=== PATIENT | female | born 1955 | race Caucasian/White ===

== ENCOUNTER 2018-03-22 19:15 | Emergency (ER) | payer BC ==
[2018-03-22] MEDS ORDERED: Albuterol/Ipratropium 3.0-0.5 MG/3 ML Neb Soln ONE (19:59)
[2018-03-22] MEDS ORDERED: Albuterol/Ipratropium 3.0-0.5 MG/3 ML Neb Soln NEB PRN (20:03)
[2018-03-22] MEDS ORDERED: Furosemide 40 MG/4 ML VIAL ONE (20:10)
[2018-03-22] MEDS ORDERED: Furosemide 20 MG/2 ML VIAL IVPUSH SCH (20:15)
[2018-03-22] MEDS ORDERED: Sodium Chloride 0.9% 10 ML Syringe FLUSH PRN (20:21)
--- NOTE | 2018-03-22 20:36 | EDM.PDOC ---
ED HPI GENERAL MEDICAL PROBLEM - General Chief Complaint: Chest Pain Stated Complaint: SOB Time Seen by Provider: 03/22/18 19:35 Source of Information: Reports: Patient History Limitations: Reports: Other (Extreme dyspnea) - History of Present Illness INITIAL COMMENTS - FREE TEXT/NARRATIVE: 62-year-old old smoker comes of the 3 days onset of shortness of breath increased swelling this evening the chest pain 3/10 no previous history of back or infarction but thought to have a CVA January 31 but did not. Primary survey A: tachypnea 30, pressure 139/90, heart rate 112, recent very dyspneic. B: Bilateral air exchange in her lungs with marked retraction and accessory muscle use no tracheal tug no tracheal deviation and 4:00 ultrasound bilateral slide signs noted no evidence for pneumothorax C: Heart rate 111-112 patient diaphoretic 3/10 chest pain midsternal nonradiating pericardial effusion. 4 hyper contractility of the heart with perhaps 10-20% contractile compression of the heart. Less than the expected 50% contractile activity. Minimal vena cava contractility. Reflex fluid under hydration. Door CHF. With myocardiopathy. D: no neuro deficit line E: No rash no purpura but skin is diaphoretic. ER course with BiPAP patient has 50% improvement in her respiration. She states it is "50% improved", and respiration is not as labored and she is no longer anxious. 20 mg Lasi IV EKG sinus tachycardia heart rate 101 left atrial enlargement interventricular conduction defect with possible atypical left bundle-branch block because large S waves noted V1 V2 V3 and rsR' I, II, III, AVL, AVF; the large ventricular complex V6 - Related Data Allergies Allergy/AdvReac Type Severity Reaction Status Date / Time No Known Allergies Allergy Verified 03/23/18 07:59 Home Meds: Home Meds Albuterol Sulfate [Proair Hfa] 2 puff INH Q4H PRN 03/23/18 [History] DULoxetine [Cymbalta] 60 mg PO BID 03/23/18 [History] Furosemide [Lasix] 20 mg PO DAILY #40 tab 03/23/18 [Rx] Gabapentin [Neurontin] 100 mg PO TID 03/23/18 [History] Hyoscyamine Sulfate [Hyoscyamine Sulfate ER] 0.375 mg PO BID 03/23/18 [History] Levothyroxine [Sythroid] 100 mcg PO DAILY 03/23/18 [History] Potassium Chloride 20 meq PO DAILY #20 tab.er.prt 03/23/18 [Rx] Tiotropium Cascade [Spiriva Respimat] 2 puff INH DAILY 03/23/18 [History] ED ROS GENERAL - Review of Systems Review Of Systems: See Below Constitutional: Reports: Diaphoresis HEENT: Reports: No Symptoms Respiratory: Reports: Shortness of Breath, Cough Cardiovascular: Reports: Chest Pain, Dyspnea on Exertion, Lightheadedness Endocrine: Reports: No Symptoms GI/Abdominal: Reports: No Symptoms : Reports: No Symptoms Musculoskeletal: Reports: No Symptoms Skin: Reports: No Symptoms Neurological: Reports: No Symptoms Psychiatric: Reports: No Symptoms Hematologic/Lymphatic: Reports: No Symptoms ED EXAM, GENERAL - Physical Exam Exam: See Below Free Text/Narrative:: Patient is markedly dyspneic. And had a very dramatic response to BiPAP with 50 % improvement in her respirations Exam Limited By: Other (His dyspneic psoas difficult to talk but she can talk) General Appearance: Alert, Severe Distress (.) Eye Exam: Bilateral Eye: Normal Inspection Ears: Normal External Exam, Normal Canal, Hearing Grossly Normal, Normal TMs Ear Exam: Bilateral Ear: Auricle Normal, Canal Normal, TM normal Nose: Normal Inspection Throat/Mouth: Normal Inspection Head: Atraumatic, Normocephalic Neck: Normal Inspection, Supple, Non-Tender Respiratory/Chest: Other (Marked respiratory distress) Cardiovascular: Normal Peripheral Pulses, Regular Rate, Rhythm, No Edema, No Gallop, No Murmur, No Rub, Other Peripheral Pulses: 1+: Radial (L), Radial (R) GI/Abdominal: Normal Bowel Sounds, Soft, Non-Tender, No Organomegaly, No Distention, No Abnormal Bruit, No Mass (Female) Exam: Deferred Rectal (Female) Exam: Deferred Back Exam: Normal Inspection Psychiatric: Normal Affect Skin Exam: Warm, Dry Course - Vital Signs Last Recorded V/S: Last Vital Signs Temp 36.6 C 03/22/18 19:15 Pulse 115 H 03/22/18 19:15 Resp 18 03/22/18 19:15 BP 159/108 H 03/22/18 19:15 Pulse Ox 86 L 03/22/18 19:15 - Orders/Labs/Meds Orders: Active Orders 24 hr Category Date Time Status BIPAP Adult [RT BiPAP/CPAP] [RC] ASDIRECTED Care 03/22/18 19:58 Active EKG Documentation Completion [RC] ASDIRECTED Care 03/22/18 19:28 Active EKG Documentation Completion [RC] ASDIRECTED Care 03/22/18 19:28 Active RT Aerosol Therapy [RC] ASDIRECTED Care 03/22/18 20:03 Active CXR [Chest 1V Frontal] [CR] Stat Exams 03/22/18 19:27 Taken Saline Lock Insert [OM.PC] Routine Oth 03/22/18 20:21 Ordered EKG 12 Lead [EK] Routine Ther 03/22/18 19:28 Ordered Labs: Laboratory Tests 03/22/18 03/22/18 03/22/18 Range/Units 19:35 19:35 19:35 WBC 5.6 (4.5-12.0) X10-3/uL RBC 3.86 (3.23-5.20) x10(6)uL Hgb 12.1 (11.5-15.5) g/dL Hct 36.8 (30.0-51.3) % MCV 95.2 (80-96) fL MCH 31.3 (27.7-33.6) pg MCHC 32.8 (32.2-35.4) g/dL RDW 14.2 (11.5-15.5) % Plt Count 204 (125-369) X10(3)uL MPV 8.5 (7.4-10.4) fL Neut % (Auto) 63.2 (46-82) % Lymph % (Auto) 27.9 (13-37) % Donley % (Auto) 6.6 (4-12) % Eos % (Auto) 2 (1.0-5.0) % Baso % (Auto) 1 (0-2) % Neut # (Auto) 3.5 (1.6-8.3) # Lymph # (Auto) 1.6 (0.6-5.0) # Donley # (Auto) 0.4 (0.0-1.3) # Eos # (Auto) 0.1 (0.0-0.8) # Baso # (Auto) 0.0 (0.0-0.2) # D-Dimer, Quantitative 2.32 H (0.0-0.59) mg/LFEU ABG pH (7.35-7.45) ABG pCO2 (35-45) mmHg ABG pO2 (83-108) mmHg ABG HCO3 (22-26) mmol/L ABG O2 Saturation (96-97) % ABG Base Excess (-2-2) Juan Test O2 Delivery Device Sodium (135-145) mmol/L Potassium (3.5-5.3) mmol/L Chloride (100-110) mmol/L Carbon Dioxide (21-32) mmol/L BUN (7-18) mg/dL Creatinine (0.55-1.02) mg/dL Est Cr Clr Drug Dosing Estimated GFR (MDRD) (>60) BUN/Creatinine Ratio (9-20) Glucose (80-116) mg/dL Lactic Acid (0.4-2.2) mmol/L Calcium (8.6-10.2) mg/dL Total Bilirubin (0.1-1.3) mg/dL AST (5-25) IU/L ALT (12-36) U/L Alkaline Phosphatase (56-112) IU/L Troponin I < 0.017 L (<0.017-0.056) ng/mL NT-Pro-B Natriuret Pep 4447 H* (<=125) pg/mL Total Protein (6.0-8.0) g/dL Albumin (3.2-4.6) g/dL Globulin g/dL Albumin/Globulin Ratio TSH, Ultra Sensitive 3.41 (0.36-3.74) IU/mL 03/22/18 03/22/18 03/22/18 Range/Units 19:35 19:35 20:01 WBC (4.5-12.0) X10-3/uL RBC (3.23-5.20) x10(6)uL Hgb (11.5-15.5) g/dL Hct (30.0-51.3) % MCV (80-96) fL MCH (27.7-33.6) pg MCHC (32.2-35.4) g/dL RDW (11.5-15.5) % Plt Count (125-369) X10(3)uL MPV (7.4-10.4) fL Neut % (Auto) (46-82) % Lymph % (Auto) (13-37) % Donley % (Auto) (4-12) % Eos % (Auto) (1.0-5.0) % Baso % (Auto) (0-2) % Neut # (Auto) (1.6-8.3) # Lymph # (Auto) (0.6-5.0) # Donley # (Auto) (0.0-1.3) # Eos # (Auto) (0.0-0.8) # Baso # (Auto) (0.0-0.2) # D-Dimer, Quantitative (0.0-0.59) mg/LFEU ABG pH 7.39 (7.35-7.45) ABG pCO2 43 (35-45) mmHg ABG pO2 283 H (83-108) mmHg ABG HCO3 26 (22-26) mmol/L ABG O2 Saturation 100 H (96-97) % ABG Base Excess 0.9 (-2-2) Juan Test Passed O2 Delivery Device Bipap Sodium 139 (135-145) mmol/L Potassium 4.6 (3.5-5.3) mmol/L Chloride 104 (100-110) mmol/L Carbon Dioxide 29 (21-32) mmol/L BUN 11 (7-18) mg/dL Creatinine 1.2 H (0.55-1.02) mg/dL Est Cr Clr Drug Dosing TNP Estimated GFR (MDRD) 45 L (>60) BUN/Creatinine Ratio 9.2 (9-20) Glucose 90 (80-116) mg/dL Lactic Acid 1.1 (0.4-2.2) mmol/L Calcium 8.3 L (8.6-10.2) mg/dL Total Bilirubin 0.4 (0.1-1.3) mg/dL AST 33 H (5-25) IU/L ALT 49 H (12-36) U/L Alkaline Phosphatase 117 H (56-112) IU/L Troponin I (<0.017-0.056) ng/mL NT-Pro-B Natriuret Pep (<=125) pg/mL Total Protein 6.7 (6.0-8.0) g/dL Albumin 2.9 L (3.2-4.6) g/dL Globulin 3.8 g/dL Albumin/Globulin Ratio 0.8 TSH, Ultra Sensitive (0.36-3.74) IU/mL Meds: Medications Discontinued Medications Generic Name Dose Route Start Last Admin Trade Name Freq PRN Reason Stop Dose Admin Albuterol/Ipratropium Confirm 03/22/18 19:59 03/23/18 00:41 Duoneb 3.0-0.5 Mg/3 Ml Administered 03/22/18 20:00 Not Given Dose 3 ml .ROUTE .STK-MED ONE Albuterol/Ipratropium 3 ml 03/22/18 20:03 03/22/18 20:00 Duoneb 3.0-0.5 Mg/3 Ml NEB 3 ml Q2H PRN Administration Shortness of Breath Furosemide 20 mg 03/22/18 20:15 03/22/18 20:13 Lasix IVPUSH Not Given DAILY BRENDA Furosemide Confirm 03/22/18 20:10 03/22/18 20:12 Lasix Administered 03/22/18 20:11 20 mg Dose Administration 40 mg .ROUTE .STK-MED ONE Furosemide 80 mg 03/22/18 21:20 03/22/18 21:30 Lasix IVPUSH 03/22/18 21:21 80 mg NOW ONE Administration Furosemide 80 mg 03/23/18 00:41 03/23/18 07:36 Lasix IM 03/23/18 00:42 80 mg NOW ONE Administration Potassium Chloride 40 meq 03/23/18 00:41 03/23/18 00:45 Potassium Chloride Solution PO 03/23/18 00:42 40 meq ONETIME ONE Administration Sodium Chloride 10 ml 03/22/18 20:21 03/22/18 19:35 Saline Flush FLUSH 10 ml ASDIRECTED PRN Administration Keep Vein Open Torsemide 20 mg 03/22/18 21:21 03/22/18 21:36 Demadex PO 03/22/18 21:22 20 mg ONETIME ONE Administration Departure - Departure Time of Disposition: 00:15 (Presented in extreme shortness of breath heart failure have markedly elevated BNP was placed on BiPAP immediately on arrival had dramatic 50% improvement within 15 minutes and then within an hour and a half completely recovered from the pulmonary edema and lost us to 5 pounds of fluid (3 L of urine put out after large dose of y) Disposition: Home, Self-Care 01 Clinical Impression: Pulmonary edema cardiac cause, Acute respiratory distress Congestive heart failure Qualifiers: Heart failure type: combined systolic and diastolic Heart failure chronicity: acute Qualified Code(s): I50.41 - Acute combined systolic (congestive) and diastolic (congestive) heart failure - Discharge Information *PRESCRIPTION DRUG MONITORING PROGRAM REVIEWED*: Not Applicable *COPY OF PRESCRIPTION DRUG MONITORING REPORT IN PATIENT MATT: Not Applicable Prescriptions: Furosemide [Lasix] 20 mg PO DAILY #40 tab Potassium Chloride 20 meq PO DAILY #20 tab.er.prt Referrals: Delano Rivas MD [Primary Care Provider] - Forms: ED Department Discharge Additional Instructions: Received a lot of Lasix this evening. You probably will have lost a total of 6-7 pounds by tomorrow morning. so far, in the ED you've already lost s 4-5 pounds fluid The reason you had shortness of breath was heart failure. Weigh yourself daily. If you weight increases by 3-4 pounds in [address] See her doctor in 1 week and at that time get a blood test metabolic panel This will test your potassium and sodium - My Orders Last 24 Hours: My Active Orders 03/22/18 19:27 CXR [Chest 1V Frontal] [CR] Stat 03/22/18 19:28 EKG Documentation Completion [RC] ASDIRECTED EKG Documentation Completion [RC] ASDIRECTED EKG 12 Lead [EK] Routine 03/22/18 19:58 BIPAP Adult [RT BiPAP/CPAP] [RC] ASDIRECTED 03/22/18 20:03 RT Aerosol Therapy [RC] ASDIRECTED 03/22/18 20:21 Saline Lock Insert [OM.PC] Routine - Assessment/Plan Last 24 Hours: My Active Orders 03/22/18 19:27 CXR [Chest 1V Frontal] [CR] Stat 03/22/18 19:28 EKG Documentation Completion [RC] ASDIRECTED EKG Documentation Completion [RC] ASDIRECTED EKG 12 Lead [EK] Routine 03/22/18 19:58 BIPAP Adult [RT BiPAP/CPAP] [RC] ASDIRECTED 03/22/18 20:03 RT Aerosol Therapy [RC] ASDIRECTED 03/22/18 20:21 Saline Lock Insert [OM.PC] Routine
[2018-03-22] MEDS ORDERED: Furosemide 40 MG/4 ML VIAL IVPUSH ONE (21:20)
[2018-03-22] MEDS ORDERED: Torsemide 20 MG Tab PO ONE (21:21)
[2018-03-23] MEDS ORDERED: Furosemide 40 MG/4 ML VIAL IM ONE (00:41)
[2018-03-23] MEDS ORDERED: Potassium Chloride 10% 20 MEQ/15 ML Soln 15 ML UD Cup PO ONE (00:41)
--- NOTE | 2018-03-25 08:06 | PN ---
PHONE CALL: 03/22/2018 Telephone call to Yasmeen this morning as her called and wondered if she should be on antibiotics. DIAGNOSIS: Congestive heart failure with cardiomyopathy, and she has mild shortness of breath. SUBJECTIVE: Mild increased shortness of breath, and she has not weighed herself yet since yesterday's diuresis of 6+ pounds for shortness of breath. Her called this morning to ask if she should be on antibiotic. The patient has a normal white count and there are no indications to start antibiotic. Consequently, in order to sustain good antibiotic stewardship, I chose not to treat with antibiotic and explained to him why should not use antibiotic. Also, she is taking 20 mg of Lasix daily, the plan is to increase to 40 mg b.i.d.; continue with potassium supplement and start torsemide 20 mg daily. She should follow up with the doctor early if shortness of breath does not improve, that is another 24 hours, otherwise in the next 3 to 7 days. I advised her that she can call me today should she have further difficulty with shortness of breath. /[id number] GALINA/VERONIKA
--- NOTE | 2018-03-25 11:24 | CR ---
INDICATION: Short of breath, chest pain. CHEST: An AP upright view of the chest was obtained. The heart did not appear grossly enlarged. The appearance of the upper lung field pulmonary vasculature and interstitium suggests CHF and interstitial lung edema with patchy acute pulmonary edema - alveolar lung edema. The possibility of superimposed pneumonia cannot be excluded, however. There appears to be blunting of the left costophrenic angle, which could represent a small pleural effusion. Overlying EKG leads are noted. Study was compared with 09/13/2016 and 10/18/2017, both of which showed normal heart size. IMPRESSION: Probable acute myocardial event with CHF and acute pulmonary edema - correlate clinically. MTDD
== END 2018-03-23 00:57 | disposition home or self-care (01) ==
LOC: FB.ED 19:15
DX: I50.41 Acute combined systolic (congestive) and diastolic (congestive) heart failure (principal); R06.03 Acute respiratory distress; Z79.899 Other long term (current) drug therapy
CPT/HCPCS: 36415; 36600; 71045; 80053; 82803; 83605; 83880; 84443; 84484; 85025; 85379; 93005; 94640; 94660; 96372; 96374; 96375; 99285; A9270; J1940; J7050; J7620-GY

== ENCOUNTER 2018-07-24 03:56 | Emergency (ER) | payer BC ==
[2018-07-24] MEDS ORDERED: Albuterol/Ipratropium 3.0-0.5 MG/3 ML Neb Soln NEB ONE (04:09)
[2018-07-24] MEDS ORDERED: Albuterol/Ipratropium 3.0-0.5 MG/3 ML Neb Soln ONE (04:12)
--- NOTE | 2018-07-24 04:38 | EDM.PDOC ---
ED HPI GENERAL MEDICAL PROBLEM - General Chief Complaint: Respiratory Problem Stated Complaint: SOB Time Seen by Provider: 07/24/18 03:56 Source of Information: Reports: Patient, Family () History Limitations: Reports: Respiratory Distress - History of Present Illness INITIAL COMMENTS - FREE TEXT/NARRATIVE: 62 y.o.w.f with a H/O CHF, Pneumonia, CRI, came to the ed due to sudden onset of SOB by PC with her . On arrival, pt was able to talk 3 word sentences , was pale and diaphoretic with a pulse ox of 87 and a HR of 133 in up right position. Lying down made her symptoms worse. No C/P, no H/O DM. Pt was seen in the clinic last Sunday, when she was diagnosed with pneumonia and given a prescription of Doxycycline. Her breathing is getting worse since Sunday. Her last Echocardiogram from(?) showed an EF of 28, She is aon Lasix and potassium daily. no other acute medical issues BP 153/105 Pulse 124 Pulse Ox 87 on RA Temp 36.0 RR 38 Onset Date: 07/22/18 Onset Time: 05:00 Duration: Day(s):, Getting Worse Location: Reports: Chest, Lower Extremity, Left, Lower Extremity, Right (lower leg edema 1+) Quality: Reports: Pressure Severity: Moderate Improves with: Reports: Rest, Other (elevation of head) Worsens with: Reports: Other (supine position) Context: Reports: Other (H/O CHF Pneumonia) Associated Symptoms: Reports: Cough, Diaphoresis, Loss of Appetite, Shortness of Breath, Weakness - Related Data Allergies Allergy/AdvReac Type Severity Reaction Status Date / Time codeine Allergy Hives Verified 07/24/18 05:05 Dairy Products Allergy Abdominal Verified 07/24/18 05:05 Pain hydrochlorothiazide Allergy Difficulty Verified 07/24/18 05:05 [From Uniretic] Breathing hydrocodone Allergy Hives Verified 07/24/18 05:05 metoprolol [From Toprol XL] Allergy Difficulty Verified 07/24/18 05:05 Breathing moexipril [From Uniretic] Allergy Difficulty Verified 07/24/18 05:05 Breathing morphine Allergy Confusion Verified 07/24/18 05:05 Penicillins Allergy Hives Verified 07/24/18 05:05 Sulfa (Sulfonamide Allergy Hives Verified 07/24/18 05:05 Antibiotics) tramadol Allergy Hives Verified 07/24/18 05:05 Home Meds: Home Meds Albuterol Sulfate [Proair Hfa] 2 puff INH Q4H PRN 03/23/18 [History] DULoxetine [Cymbalta] 60 mg PO BID 03/23/18 [History] Furosemide [Lasix] 20 mg PO DAILY #40 tab 03/23/18 [Rx] Gabapentin [Neurontin] 100 mg PO TID 03/23/18 [History] Hyoscyamine Sulfate [Hyoscyamine Sulfate ER] 0.375 mg PO BID 03/23/18 [History] Levothyroxine [Sythroid] 100 mcg PO DAILY 03/23/18 [History] Potassium Chloride 20 meq PO DAILY #20 tab.er.prt 03/23/18 [Rx] Tiotropium Lynn [Spiriva Respimat] 2 puff INH DAILY 03/23/18 [History] Doxycycline Hyclate 100 mg PO BID 07/24/18 [History] predniSONE 20 mg PO BID 07/24/18 [History] Past Medical History Cardiovascular 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: Heart Failure Respiratory 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: Asthma 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 ASSISTANT 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: Musculoskeletal 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: Arthritis Psychiatric 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: Anxiety, Depression Endocrine/Metabolic 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: Hypothyroidism Social & Family History - Caffeine Use Caffeine Use: Reports: Coffee ED ROS GENERAL - Review of Systems Review Of Systems: See Below Constitutional: Reports: Weight Gain (20 lbs in past month) HEENT: Reports: No Symptoms Respiratory: Reports: Shortness of Breath, Cough Cardiovascular: Reports: Edema, Palpitations Endocrine: Reports: No Symptoms GI/Abdominal: Reports: No Symptoms : Reports: No Symptoms Musculoskeletal: Reports: No Symptoms Skin: Reports: Pallor, Diaphoresis Neurological: Reports: No Symptoms Psychiatric: Reports: No Symptoms Hematologic/Lymphatic: Reports: No Symptoms Immunologic: Reports: No Symptoms ED EXAM, GENERAL - Physical Exam Exam: See Below Exam Limited By: Respiratory Distress General Appearance: Alert, Moderate Distress, Obese Eye Exam: Bilateral Eye: Normal Inspection Ears: Normal External Exam Ear Exam: Bilateral Ear: Auricle Normal Nose: Normal Inspection, Normal Mucosa, No Blood Throat/Mouth: Normal Inspection, Normal Lips, Normal Voice, No Airway Compromise Head: Atraumatic, Normocephalic Neck: Normal Inspection, Supple, Non-Tender, Full Range of Motion Respiratory/Chest: Respiratory Distress, Crackles, Wheezing Cardiovascular: JVD, Tachycardia Peripheral Pulses: 1+: Brachial (L) GI/Abdominal: Normal Bowel Sounds, Soft, Non-Tender, No Organomegaly, No Abnormal Bruit, No Mass, Pelvis Stable (Female) Exam: Deferred Rectal (Female) Exam: Deferred Back Exam: Normal Inspection, Full Range of Motion Extremities: Normal Range of Motion, Non-Tender, Pedal Edema Neurological: Alert, Oriented, CN II-XII Intact, Normal Cognition, Normal Gait Psychiatric: Normal Affect, Normal Mood Skin Exam: Warm, Dry, Diaphoretic Lymphatic: No Adenopathy EKG INTERPRETATION EKG Date: 07/24/18 Time: 04:15 Rhythm: NSR Rate (Beats/Min): 123 [place]: Normal P-Wave: Present QRS: Wide ST-T: Normal QT: Prolonged Comparison: NA - No Prior EKG Course - Vital Signs Text/Narrative:: 62 y.o.w.f with a H/O CHF, Pneumonia, CRI, came to the ed due to sudden onset of SOB by PC with her . On arrival, pt was able to talk 3 word sentences , was pale and diaphoretic with a pulse ox of 87 and a HR of 133 in up right position. Lying down made her symptoms worse. No C/P, no H/O DM. Pt was seen in the clinic last Sunday, when she was diagnosed with pneumonia and given a prescription of Doxycycline. Her breathing is getting worse since Sunday. Her last Echocardiogram from(?) showed an EF of 28, She is aon Lasix and potassium daily. no other acute medical issues BP 153/105 Pulse 124 Pulse Ox 87 on RA Temp 36.0 RR 38 PE: Obese 62 y.o.w.f pale, diaphoretic in Resp distress. Imaging: CXR Atelectasis ves pneumonia, official report is pending. Angio CT chest contra indicated due to low GFR No VQ heller test available at [facility]: CBC nl, D Dimer was 1.36 Na 127 K 4.0 Cl 90 CO2 27 BUN 19 Cr. 1.5 GFR 35 Lactic acid 2.9 Glc 193 Troponin 0.017 BNP 08130, UA: Unable to obtain urine at this time. Impression: Atelectasis left lower lung vs pneumonia, Tachycardia, D Dimer elevated with, CHF, worsening CRI. Hypoxemia, Hyponatremia .DDx PE, CHF. ACS TxL Lasix, Duoneb, O2 by NC. 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 Zuñiga, Hospitalist, [facility]: accepted for transfer, admission and further care. Reexam: Pt was doing better, Vitals on Transfer BP 135/85 Pulse 108 RR 21, Temp 97.3 O2 sat 92% on 2 liters Plan: Transfer by EMS to [facility] Last Recorded V/S: Last Vital Signs Temp 36.0 C 07/24/18 04:00 Pulse 124 H 07/24/18 04:00 Resp 20 07/24/18 06:00 BP 123/96 H 07/24/18 06:00 Pulse Ox 94 L 07/24/18 06:00 - Orders/Labs/Meds Labs: Laboratory Tests 07/24/18 07/24/18 07/24/18 Range/Units 04:25 04:25 04:25 WBC 9.2 (4.5-12.0) X10-3/uL RBC 4.00 (3.23-5.20) x10(6)uL Hgb 11.9 (11.5-15.5) g/dL Hct 37.3 (30.0-51.3) % MCV 93.3 (80-96) fL MCH 29.9 (27.7-33.6) pg MCHC 32.0 L (32.2-35.4) g/dL RDW 14.1 (11.5-15.5) % Plt Count 318 (125-369) X10(3)uL MPV 8.7 (7.4-10.4) fL Neut % (Auto) 77.9 (46-82) % Lymph % (Auto) 15.8 (13-37) % Stephenson % (Auto) 4.4 (4-12) % Eos % (Auto) 0 L (1.0-5.0) % Baso % (Auto) 2 (0-2) % Neut # (Auto) 7.1 (1.6-8.3) # Lymph # (Auto) 1.5 (0.6-5.0) # Stephenson # (Auto) 0.4 (0.0-1.3) # Eos # (Auto) 0.0 (0.0-0.8) # Baso # (Auto) 0.2 (0.0-0.2) # D-Dimer, Quantitative 1.36 H (0.0-0.59) mg/LFEU Sodium 127 L D (135-145) mmol/L Potassium 4.0 (3.5-5.3) mmol/L Chloride 90 L D (100-110) mmol/L Carbon Dioxide 27 (21-32) mmol/L BUN 19 H (7-18) mg/dL Creatinine 1.5 H (0.55-1.02) mg/dL Est Cr Clr Drug Dosing TNP Estimated GFR (MDRD) 35 L (>60) BUN/Creatinine Ratio 12.7 (9-20) Glucose 193 H D (80-116) mg/dL Lactic Acid (0.4-2.2) mmol/L Calcium 8.8 (8.6-10.2) mg/dL Magnesium (1.8-2.5) mg/dL Troponin I (<0.017-0.056) ng/mL NT-Pro-B Natriuret Pep (<=125) pg/mL Urine Color (YELLOW) Urine Appearance (CLEAR) Urine pH (5.0-6.5) Ur Specific Parrish (1.010-1.025) Urine Protein (NEGATIVE) mg/dL Urine Glucose (UA) (NEGATIVE) mg/dL Urine Ketones (NEGATIVE) mg/dL Urine Occult Blood (NEGATIVE) Urine Nitrite (NEGATIVE) Urine Bilirubin (NEGATIVE) Urine Urobilinogen (NEGATIVE) mg/dL Ur Leukocyte Esterase (NEGATIVE) Urine RBC (0) Urine WBC (0) Ur Squamous Epith Cells (NS,R,O) Urine Bacteria (NS) 07/24/18 07/24/18 07/24/18 Range/Units 04:25 04:25 04:25 WBC (4.5-12.0) X10-3/uL RBC (3.23-5.20) x10(6)uL Hgb (11.5-15.5) g/dL Hct (30.0-51.3) % MCV (80-96) fL MCH (27.7-33.6) pg MCHC (32.2-35.4) g/dL RDW (11.5-15.5) % Plt Count (125-369) X10(3)uL MPV (7.4-10.4) fL Neut % (Auto) (46-82) % Lymph % (Auto) (13-37) % Stephenson % (Auto) (4-12) % Eos % (Auto) (1.0-5.0) % Baso % (Auto) (0-2) % Neut # (Auto) (1.6-8.3) # Lymph # (Auto) (0.6-5.0) # Stephenson # (Auto) (0.0-1.3) # Eos # (Auto) (0.0-0.8) # Baso # (Auto) (0.0-0.2) # D-Dimer, Quantitative (0.0-0.59) mg/LFEU Sodium (135-145) mmol/L Potassium (3.5-5.3) mmol/L Chloride (100-110) mmol/L Carbon Dioxide (21-32) mmol/L BUN (7-18) mg/dL Creatinine (0.55-1.02) mg/dL Est Cr Clr Drug Dosing Estimated GFR (MDRD) (>60) BUN/Creatinine Ratio (9-20) Glucose (80-116) mg/dL Lactic Acid 2.9 H (0.4-2.2) mmol/L Calcium (8.6-10.2) mg/dL Magnesium (1.8-2.5) mg/dL Troponin I < 0.017 L (<0.017-0.056) ng/mL NT-Pro-B Natriuret Pep 67969 H* (<=125) pg/mL Urine Color (YELLOW) Urine Appearance (CLEAR) Urine pH (5.0-6.5) Ur Specific Parrish (1.010-1.025) Urine Protein (NEGATIVE) mg/dL Urine Glucose (UA) (NEGATIVE) mg/dL Urine Ketones (NEGATIVE) mg/dL Urine Occult Blood (NEGATIVE) Urine Nitrite (NEGATIVE) Urine Bilirubin (NEGATIVE) Urine Urobilinogen (NEGATIVE) mg/dL Ur Leukocyte Esterase (NEGATIVE) Urine RBC (0) Urine WBC (0) Ur Squamous Epith Cells (NS,R,O) Urine Bacteria (NS) 07/24/18 07/24/18 Range/Units 04:25 06:15 WBC (4.5-12.0) X10-3/uL RBC (3.23-5.20) x10(6)uL Hgb (11.5-15.5) g/dL Hct (30.0-51.3) % MCV (80-96) fL MCH (27.7-33.6) pg MCHC (32.2-35.4) g/dL RDW (11.5-15.5) % Plt Count (125-369) X10(3)uL MPV (7.4-10.4) fL Neut % (Auto) (46-82) % Lymph % (Auto) (13-37) % Stephenson % (Auto) (4-12) % Eos % (Auto) (1.0-5.0) % Baso % (Auto) (0-2) % Neut # (Auto) (1.6-8.3) # Lymph # (Auto) (0.6-5.0) # Stephenson # (Auto) (0.0-1.3) # Eos # (Auto) (0.0-0.8) # Baso # (Auto) (0.0-0.2) # D-Dimer, Quantitative (0.0-0.59) mg/LFEU Sodium (135-145) mmol/L Potassium (3.5-5.3) mmol/L Chloride (100-110) mmol/L Carbon Dioxide (21-32) mmol/L BUN (7-18) mg/dL Creatinine (0.55-1.02) mg/dL Est Cr Clr Drug Dosing Estimated GFR (MDRD) (>60) BUN/Creatinine Ratio (9-20) Glucose (80-116) mg/dL Lactic Acid (0.4-2.2) mmol/L Calcium (8.6-10.2) mg/dL Magnesium 1.9 (1.8-2.5) mg/dL Troponin I (<0.017-0.056) ng/mL NT-Pro-B Natriuret Pep (<=125) pg/mL Urine Color Yellow (YELLOW) Urine Appearance Clear (CLEAR) Urine pH 5.0 (5.0-6.5) Ur Specific Parrish 1.015 (1.010-1.025) Urine Protein Negative (NEGATIVE) mg/dL Urine Glucose (UA) Normal (NEGATIVE) mg/dL Urine Ketones Negative (NEGATIVE) mg/dL Urine Occult Blood Negative (NEGATIVE) Urine Nitrite Negative (NEGATIVE) Urine Bilirubin Negative (NEGATIVE) Urine Urobilinogen Normal (NEGATIVE) mg/dL Ur Leukocyte Esterase Negative (NEGATIVE) Urine RBC 0-5 (0) Urine WBC 0-5 (0) Ur Squamous Epith Cells Occasional (NS,R,O) Urine Bacteria Rare H (NS) Meds: Medications Discontinued Medications Generic Name Dose Route Start Last Admin Trade Name Freq PRN Reason Stop Dose Admin Albuterol/Ipratropium 3 ml 07/24/18 04:09 07/24/18 04:15 Duoneb 3.0-0.5 Mg/3 Ml NEB 07/24/18 04:10 3 ml ONETIME ONE Administration Albuterol/Ipratropium Confirm 07/24/18 04:12 07/24/18 04:36 Duoneb 3.0-0.5 Mg/3 Ml Administered 07/24/18 04:13 Not Given Dose 3 ml .ROUTE .STK-MED ONE Furosemide 20 mg 07/24/18 05:21 07/24/18 05:34 Lasix IVPUSH 07/24/18 05:22 20 mg ONETIME ONE Administration Levofloxacin 500 mg 07/24/18 05:41 07/24/18 05:59 Levaquin PO 07/24/18 05:42 500 mg ONETIME ONE Administration Sodium Chloride 10 ml 07/24/18 04:36 07/24/18 05:36 Saline Flush FLUSH 10 ml ASDIRECTED PRN Administration Keep Vein Open Departure - Departure Time of Disposition: 06:08 Disposition: DC/Tfer to Acute Hospital 02 Condition: Fair Clinical Impression: Chest pain - Discharge Information Referrals: PCP,None [Primary Care Provider] - Forms: ED Department Discharge
[2018-07-24] MEDS: Sodium Chloride 0.9% 10 ML Syringe FLUSH PRN ×2 (05:20→05:36)
[2018-07-24] MEDS ORDERED: Furosemide 20 MG/2 ML VIAL IVPUSH ONE (05:21)
[2018-07-24] MEDS ORDERED: Levofloxacin 500 MG Tab PO ONE (05:41)
== END 2018-07-24 06:20 ==
LOC: FB.ED 03:56
DX: R07.9 Chest pain, unspecified (principal); I50.9 Heart failure, unspecified; N18.9 Chronic kidney disease, unspecified; F41.9 Anxiety disorder, unspecified; F32.9 Major depressive disorder, single episode, unspecified; Z88.5 Allergy status to narcotic agent; Z91.011 Allergy to milk products; Z88.0 Allergy status to penicillin; Z79.899 Other long term (current) drug therapy; Z88.2 Allergy status to sulfonamides
CPT/HCPCS: 36415; 71045; 80048; 81001; 83605; 83735; 83880; 84484; 85025; 85379; 87040; 93005; 94640; 96374; 99285; A9270; J1940; J7620-GY

== ENCOUNTER 2023-09-26 14:20 | Emergency (ER) | payer MEDICARE ==
[2023-09-26] MEDS: Aspirin 81 MG Tab.Chew PO ONE (15:06)
[2023-09-26] MEDS: Nitroglycerin 0.4 MG Tab.SL SL PRN (15:07)
[2023-09-26 15:14] LABS: BASOPHILS PERCENT AUTO 0.7 % (0.2-1.5); EOSINOPHILS PERCENT AUTO 0.4 % (0.6-8.1); HEMOGLOBIN 12.9 g/dL (11.4-15.5); LYMPHOCYTES ABSOLUTE AUTO 1.1 x10-3/uL (1.0-4.4); MEAN CORPUSCULAR HGB CONC 33.9 g/dL (31.9-34.8); MEAN CORPUSCULAR VOLUME 100.1 fL (76.7-100.5); MEAN PLATELET VOLUME 8.4 fL (7.1-12.4); MONOCYTES ABSOLUTE AUTO 0.6 x10-3/uL (0.3-1.0); MONOCYTES PERCENT AUTO 13.6 % (4.4-15.7); NEUTROPHILS ABSOLUTE AUTO 2.4 x10-3/uL (1.5-6.3); NEUTROPHILS PERCENT AUTO 59.3 % (30.8-76.2); PLATELET COUNT,PLT 188 x10(3)uL (151-488); RED CELL DISTRIBUTION WIDTH 12.5 % (12.3-16.5); WHITE BLOOD CELL COUNT,WBC 4.1 x10-3/uL (3.0-10.3)
[2023-09-26 15:18] LABS: BLOOD UREA NITROGEN,BUN 8 mg/dL (7-18); CALCIUM 8.5 mg/dL (8.6-10.2); CARBON DIOXIDE,CO2 26 mmol/L (21-32); CHLORIDE,CL 98 mmol/L (100-110); CREATININE 0.8 mg/dL (0.55-1.02); ESTIMATED GFR 79 mL/min (>60); GLUCOSE RANDOM 100 mg/dL (80-116); POTASSIUM,K 4.2 mmol/L (3.5-5.3); SODIUM,NA 132 mmol/L (135-145)
[2023-09-26 15:25] LABS: ALANINE AMINOTRANSFERASE,ALT 39 U/L (12-36); ALBUMIN 3.2 g/dL (3.2-4.6); ALKALINE PHOSPHATASE 58 IU/L (56-112); ASPARTATE AMNIOTRANSFERASE,AST 24 IU/L (5-25); BILIRUBIN TOTAL 0.5 mg/dL (0.1-1.3); MAGNESIUM 2.1 mg/dL (1.8-2.5); PROTEIN TOTAL,TP 6.4 g/dL (6.0-8.0)
[2023-09-26 15:32] LABS: PRO B-TYPE NATRIUR PEPT,BNPPRO 357 pg/mL (<=125)
[2023-09-26 15:34] LABS: C-REACTIVE PROTEIN < 0.50 mg/dL (<0.50)
[2023-09-26] MEDS: Ondansetron 4 MG/2 ML SDV IVPUSH ONE (15:44)
[2023-09-26] MEDS: ClonazePAM 0.5 MG Tab PO ONE (17:36)
[2023-09-26] MEDS: Acetaminophen 500 MG Tab ONE (17:37)
[2023-09-26] MEDS: Metoclopramide 10 MG/2 ML SDV IVPUSH ONE (17:37)
[2023-09-26] MEDS: Acetaminophen 500 MG Tab PO ONE (17:37)
[2023-09-26 18:12] LABS: INFLUENZA A NAA NEGATIVE (NEGATIVE); INFLUENZA B NAA NEGATIVE (NEGATIVE); RESPIRATORY SYNCYTIAL VIR NAA NEGATIVE (NEGATIVE)
[2023-09-26 18:15] LABS: CORONAVIRUS COVID-19 NAA NEGATIVE (NEGATIVE)
[2023-09-26 19:09] LABS: APPEARANCE,URINE CLEAR (CLEAR); BACTERIA,URINE RARE (NS); BILIRUBIN,URINE NEGATIVE (NEGATIVE); COLOR,URINE YELLOW (YELLOW); GLUCOSE,URINE NORMAL (NORMAL); KETONES,URINE 15 mg/dL (NEGATIVE); LEUKOCYTE ESTERASE,URINE NEGATIVE (NEGATIVE); NITRITE,URINE NEGATIVE (NEGATIVE); OCCULT BLOOD,URINE NEGATIVE (NEGATIVE); PROTEIN,URINE NEGATIVE (NEGATIVE); RBC,URINE 0-5 (0-5); SQUAMOUS EPITHELIAL CELLS,UR FEW (NS,R,O); UROBILINOGEN,URINE NORMAL (NEGATIVE); WBC,URINE 0-5 (0-5)
== END 2023-09-26 20:00 ==
LOC: FB.ED 14:20
DX: I49.8 Other specified cardiac arrhythmias (principal); R07.9 Chest pain, unspecified; R79.89 Other specified abnormal findings of blood chemistry; I25.10 Atherosclerotic heart disease of native coronary artery without angina pectoris; I50.9 Heart failure, unspecified; I25.2 Old myocardial infarction; Z88.5 Allergy status to narcotic agent; Z91.011 Allergy to milk products; Z88.0 Allergy status to penicillin; Z88.2 Allergy status to sulfonamides; Z88.8 Allergy status to other drugs, medicaments and biological substances; Z90.710 Acquired absence of both cervix and uterus; Z79.51 Long term (current) use of inhaled steroids
CPT/HCPCS: 0241U; 36415; 71045; 80053; 81001; 83605; 83735; 83880; 84484; 85025; 85379; 86140; 93005; 96374; 96375; 99285; A9270; J2405; J2765

== ENCOUNTER 2024-08-20 09:42 | Day surgery (SDC) | payer MEDICARE ==
[2024-08-20] MEDS ORDERED: Glycopyrrolate 0.2 MG/ML 5 ML MDV IV ONE (09:43)
[2024-08-20] MEDS ORDERED: Propofol 200 MG/20 ML SDV IV ONE (09:43)
[2024-08-20] MEDS ORDERED: Sodium Chloride 0.9% 10 ML Syringe FLUSH PRN (09:45)
[2024-08-20] MEDS: Lactated Ringers 1,000 ML IV PRN (11:12)
== END 2024-08-20 12:50 | disposition home or self-care (01) ==
LOC: FB.SDS 09:42
PROVIDERS: ATTEND Surgery
DX: K57.31 Diverticulosis of large intestine without perforation or abscess with bleeding (principal); K64.1 Second degree hemorrhoids; K58.9 Irritable bowel syndrome, unspecified; K52.9 Noninfective gastroenteritis and colitis, unspecified; I50.9 Heart failure, unspecified; N18.30 Chronic kidney disease, stage 3 unspecified; E66.9 Obesity, unspecified; Z88.0 Allergy status to penicillin; Z88.8 Allergy status to other drugs, medicaments and biological substances; Z88.2 Allergy status to sulfonamides; Z68.31 Body mass index [BMI] 31.0-31.9, adult; Z87.891 Personal history of nicotine dependence; Z79.899 Other long term (current) drug therapy
CPT/HCPCS: 00811; 99100; J1596; J2704; J7120

== ENCOUNTER 2024-12-10 19:40 | Inpatient (IN) | payer MEDICARE ==
[2024-12-10] MEDS: Pantoprazole 40 MG Vial IVPUSH ONE (20:45)
[2024-12-10] MEDS: Sodium Chloride 0.9% 1,000 ML IV ONE (20:45)
[2024-12-10 20:54] LABS: BLOOD UREA NITROGEN,BUN 9 mg/dL (7-18); CARBON DIOXIDE,CO2 33 mmol/L (21-32); CHLORIDE,CL 91 mmol/L (100-110); CREATININE 0.9 mg/dL (0.55-1.02); EST CRCL DRUG DOSING (CG) 49.51 mL/min; ESTIMATED GFR 68 mL/min (>60); GLUCOSE RANDOM 104 mg/dL (80-116); POTASSIUM,K 3.8 mmol/L (3.5-5.3); SODIUM,NA 129 mmol/L (135-145)
[2024-12-10 21:00] LABS: A/G RATIO 0.4; ALANINE AMINOTRANSFERASE,ALT 14 U/L (12-36); ALBUMIN 2.2 g/dL (3.2-4.6); ALKALINE PHOSPHATASE 123 IU/L (56-112); ASPARTATE AMNIOTRANSFERASE,AST 19 IU/L (5-25); BILIRUBIN TOTAL 0.5 mg/dL (0.1-1.3); PROTEIN TOTAL,TP 7.3 g/dL (6.0-8.0)
[2024-12-10 21:04] LABS: LACTIC ACID 1.2 mmol/L (0.4-2.0)
[2024-12-10 21:05] LABS: C-REACTIVE PROTEIN 29.67 mg/dL (<0.50)
[2024-12-10 21:37] LABS: APPEARANCE,URINE SLIGHTLY CLOUDY (CLEAR); BILIRUBIN,URINE SMALL (NEGATIVE); COLOR,URINE YELLOW (YELLOW); GLUCOSE,URINE NORMAL (NORMAL); KETONES,URINE 15 mg/dL (NEGATIVE); LEUKOCYTE ESTERASE,URINE NEGATIVE (NEGATIVE); NITRITE,URINE NEGATIVE (NEGATIVE); OCCULT BLOOD,URINE MODERATE (NEGATIVE); PROTEIN,URINE 30 mg/dL (NEGATIVE); UROBILINOGEN,URINE 1 mg/dL (NEGATIVE)
[2024-12-10 21:51] LABS: BACTERIA,URINE MODERATE (NS); HYALINE CASTS,URINE MODERATE (NS); SQUAMOUS EPITHELIAL CELLS,UR MODERATE (NS,R,O); WBC,URINE 0-5 (0-5)
[2024-12-10] MEDS: Ketorolac 15 MG/ML SDV IVPUSH ONE (22:03)
[2024-12-10] MEDS: Iopamidol 755 Mg/ML 100 ML Bottle IV SCH (22:35)
[2024-12-10] MEDS: fentaNYL 100 MCG/2 ML SDV IVPUSH ONE (23:38)
[2024-12-11] MEDS ORDERED: Naloxone 0.4 MG/ML SDV IVPUSH PRN (00:30)
[2024-12-11] MEDS: Sodium Chloride 0.9% 1,000 ML IV SCH (01:03)
[2024-12-11] MEDS: HYDROmorphone 2 MG/ML SDV IVPUSH PRN (01:06)
[2024-12-11] MEDS: diphenhydrAMINE 50 MG/ML SDV IVPUSH ONE (01:51)
[2024-12-11] MEDS: fentaNYL 100 MCG/2 ML SDV IVPUSH PRN (06:06)
[2024-12-11] MEDS: Sodium Chloride 0.9% 10 ML Syringe FLUSH PRN ×2 (08:22→16:32)
[2024-12-11] MEDS: LORazepam 2 MG/ML SDV IVPUSH ONE (09:20)
[2024-12-11] MEDS: Dextrose 5%-0.9% NaCl 1,000 ML IV SCH (12:16)
[2024-12-11] MEDS: Lidocaine 4% Patch TOP PRN (13:59)
[2024-12-11] MEDS ORDERED: Albuterol 6.7 GM Inhaler INH PRN (15:18)
[2024-12-11] MEDS ORDERED: LORazepam 2 MG/ML SDV IVPUSH PRN (20:00)
== END 2024-12-11 18:15 | DRG 439 ==
LOC: FB.ED 19:40 → FB.MS 12-11
PROVIDERS: ADMIT Internal Medicine; ATTEND Internal Medicine
DX: K86.89 Other specified diseases of pancreas (principal); K31.1 Adult hypertrophic pyloric stenosis; K31.89 Other diseases of stomach and duodenum; M19.90 Unspecified osteoarthritis, unspecified site; H54.7 Unspecified visual loss; I50.9 Heart failure, unspecified; J44.89 Other specified chronic obstructive pulmonary disease; G47.30 Sleep apnea, unspecified; N18.30 Chronic kidney disease, stage 3 unspecified; G62.9 Polyneuropathy, unspecified; F41.9 Anxiety disorder, unspecified; F32.A Depression, unspecified; F43.10 Post-traumatic stress disorder, unspecified; F17.200 Nicotine dependence, unspecified, uncomplicated; Z96.649 Presence of unspecified artificial hip joint; E03.9 Hypothyroidism, unspecified; K57.90 Diverticulosis of intestine, part unspecified, without perforation or abscess without bleeding; E66.9 Obesity, unspecified; Z68.28 Body mass index [BMI] 28.0-28.9, adult; Z98.49 Cataract extraction status, unspecified eye; Z90.49 Acquired absence of other specified parts of digestive tract; I25.2 Old myocardial infarction; Z90.710 Acquired absence of both cervix and uterus; Z98.84 Bariatric surgery status; Z88.6 Allergy status to analgesic agent; Z88.5 Allergy status to narcotic agent; Z88.8 Allergy status to other drugs, medicaments and biological substances; Z91.011 Allergy to milk products; Z88.0 Allergy status to penicillin; Z88.2 Allergy status to sulfonamides; Z79.52 Long term (current) use of systemic steroids; Z79.899 Other long term (current) drug therapy; Z79.82 Long term (current) use of aspirin; Z79.890 Hormone replacement therapy
CPT/HCPCS: 74177; 80053; 81001 ×2; 83605; 83690; 86140; 99285; J1885; J2470; J3010; J7030; Q9967; 36415; 84484; 93005; 93010; 96361; 96374; 96375; 99235; J1171; J1200; J2060

== ENCOUNTER 2024-12-25 08:23 | Inpatient (IN) | payer MEDICARE ==
[2024-12-25] MEDS: Acetaminophen/HYDROcodone 325-5 MG Tab PO PRN (14:32)
[2024-12-26] MEDS: NICOTINE LOZENGES BUCCAL PRN (02:57)
[2024-12-27] MEDS: Ondansetron 4 MG Tab.DIS PO PRN (08:51)
[2024-12-29 10:41] LABS: CARBON DIOXIDE,CO2 39 mmol/L (21-32); CHLORIDE,CL 98 mmol/L (100-110); CREATININE 0.7 mg/dL (0.55-1.02); EST CRCL DRUG DOSING (CG) 63.65 mL/min; ESTIMATED GFR 92 mL/min (>60); GLUCOSE RANDOM 96 mg/dL (80-116); SODIUM,NA 139 mmol/L (135-145)
[2024-12-29 10:43] LABS: BLOOD UREA NITROGEN,BUN < 5 mg/dL (7-18); POTASSIUM,K 2.8 mmol/L (3.5-5.3)
[2024-12-29] MEDS: Potassium Chloride 20 MEQ Tab.ER PO SCH (15:34)
[2025-01-01 06:49] LABS: BASOPHILS ABSOLUTE AUTO 0.0 x10-3/uL (0.0-0.1); BASOPHILS PERCENT AUTO 0.7 % (0.2-1.5); EOSINOPHILS ABSOLUTE AUTO 0.0 x10-3/uL (0.0-0.8); EOSINOPHILS PERCENT AUTO 0.5 % (0.6-8.1); LYMPHOCYTES ABSOLUTE AUTO 0.9 x10-3/uL (1.0-4.4); LYMPHOCYTES PERCENT AUTO 14.6 % (18.4-52.1); MEAN PLATELET VOLUME 9.5 fL (7.1-12.4); MONOCYTES ABSOLUTE AUTO 0.7 x10-3/uL (0.3-1.0); MONOCYTES PERCENT AUTO 11.0 % (4.4-15.7); NEUTROPHILS ABSOLUTE AUTO 4.4 x10-3/uL (1.5-6.3); NEUTROPHILS PERCENT AUTO 73.2 % (30.8-76.2); PLATELET COUNT,PLT 190 x10(3)uL (151-488); RED BLOOD CELL COUNT 3.05 x10(6)uL (3.60-5.20); RED CELL DISTRIBUTION WIDTH 16.5 % (12.3-16.5); WHITE BLOOD CELL COUNT,WBC 5.9 x10-3/uL (3.0-10.3)
[2025-01-01 06:53] LABS: A/G RATIO 0.3; ALANINE AMINOTRANSFERASE,ALT 9 U/L (12-36); ASPARTATE AMNIOTRANSFERASE,AST 17 IU/L (5-25); BILIRUBIN TOTAL 0.3 mg/dL (0.1-1.3); CARBON DIOXIDE,CO2 37 mmol/L (21-32); CHLORIDE,CL 100 mmol/L (100-110); CREATININE 0.7 mg/dL (0.55-1.02); EST CRCL DRUG DOSING (CG) 63.65 mL/min; ESTIMATED GFR 92 mL/min (>60); GLUCOSE RANDOM 85 mg/dL (80-116); POTASSIUM,K 3.6 mmol/L (3.5-5.3); PROTEIN TOTAL,TP 5.7 g/dL (6.0-8.0); SODIUM,NA 138 mmol/L (135-145)
[2025-01-01 06:54] LABS: BLOOD UREA NITROGEN,BUN < 5 mg/dL (7-18)
== END 2025-01-01 13:50 | disposition home health service (06) | DRG 947 ==
LOC: FB.MS 11:36
PROVIDERS: ADMIT Internal Medicine; ATTEND Internal Medicine
DX: R53.81 Other malaise (principal); K85.90 Acute pancreatitis without necrosis or infection, unspecified; C16.9 Malignant neoplasm of stomach, unspecified; F41.9 Anxiety disorder, unspecified; H54.7 Unspecified visual loss; I50.9 Heart failure, unspecified; J44.9 Chronic obstructive pulmonary disease, unspecified; G47.30 Sleep apnea, unspecified; N18.30 Chronic kidney disease, stage 3 unspecified; G62.9 Polyneuropathy, unspecified; M19.90 Unspecified osteoarthritis, unspecified site; F32.A Depression, unspecified; E66.9 Obesity, unspecified; E03.9 Hypothyroidism, unspecified; Z96.649 Presence of unspecified artificial hip joint; Z93.1 Gastrostomy status; Z79.899 Other long term (current) drug therapy; Z88.8 Allergy status to other drugs, medicaments and biological substances; Z88.5 Allergy status to narcotic agent; Z88.0 Allergy status to penicillin; Z88.2 Allergy status to sulfonamides; I25.2 Old myocardial infarction; Z87.01 Personal history of pneumonia (recurrent); Z68.31 Body mass index [BMI] 31.0-31.9, adult; Z98.49 Cataract extraction status, unspecified eye; Z98.890 Other specified postprocedural states; Z98.84 Bariatric surgery status; Z90.710 Acquired absence of both cervix and uterus; Z90.49 Acquired absence of other specified parts of digestive tract
CPT/HCPCS: 36415; 80048; 80053; 85025; 97110-GO; 97110-GP; 97161-GP; 97165-GO; 97530-GP; 97535-GO; 99305; 99316; A9270-GY; J0696; Q0162